=== PATIENT | male | born 1995 | race Caucasian/White ===

== ENCOUNTER → 2020-12-30 12:26 | Outpatient (BNVA) | payer OTHER, SELFPAY | PROVIDERS: PCP Nurse Practitioner Family; Visit Provider Chiropractor | DX: Z01.812 Encounter for preprocedural laboratory examination (principal); Z20.822 Contact with and (suspected) exposure to COVID-19; Z11.52 Encounter for screening for COVID-19 | CPT/HCPCS: 87635 ==

== ENCOUNTER 2021-01-04 10:50 | Outpatient (CLI) | payer OTHER, SELFPAY ==
--- NOTE | 2021-01-04 12:37 | PFTS_ITS ---
Date of Study:01/04/21 Date of Dictation: 01/08/2021 MECHANICS: Post bronchodilator Forced vital capacity (FVC) is normal. Post bronchodilator Forced expiratory volume in one second (FEV1) is normal. FEV1/FVC is reduced. There is no significant response to bronchodilators. FLOW VOLUME LOOP: normal LUNG VOLUMES: not measured DIFFUSING CAPACITY FOR CARBON MONOXIDE: not measured . INTERPRETATION: The spirometry suggestive of very mild obstructive lung disease with no significant response to bronchodilators. Clinical correlation recommended. [facility]
== END 2021-01-04 10:51 | disposition home or self-care (01) ==
PROVIDERS: PCP Nurse Practitioner Family; Visit Provider Chiropractor
DX: J45.909 Unspecified asthma, uncomplicated (principal)
CPT/HCPCS: 94060; J7611

== ENCOUNTER 2021-01-11 13:46 | Emergency (ER) | payer OTHER, SELFPAY ==
[2021-01-11 14:08] VITALS: BP 124/84; PULSE 82; RESP 18; TEMP 36.6; O2SAT 96; BMI 35.7
[2021-01-11 16:00] LABS: Add Urine Microscopic? NO; Bilirubin Urine Neg (Negative); Blood Urine Neg (Negative); Glucose Urine UA Norm (Normal); Ketones Urine Negative (Negative); Leukocyte Esterase Urine Negative (Negative); Nitrate Urine Negative (Negative); Protein Urine Neg (Negative); Specific Gravity, Urine 1.015 (1.005-1.030); Urine Appearance Clear (CLEAR); Urine Color Yellow (Yellow); Urobilinogen Urine Norm (Negative); pH Urine 6 (5-7)
[2021-01-11 16:02] LABS: Charge for UA Resulting for Rev
--- NOTE | 2021-01-11 17:25 | W.ED.BACK ---
HPI - Back Pain/Injury General: Chief Complaint: Back Pain/Injury Stated Complaint: Lower Back Pain Time Seen by Provider: 01/11/21 17:24 History of Present Illness: HPI Narrative: Patient is a 25-year-old male who comes to the ED with chronic back pain. Patient said he has been having back pain for the last 4 years. Today he has worsening back pain he rates it at 8 out of 10 and describes it as an aching feeling. Patient says pain radiates down both left and right legs. Denies any known injury. Patient was seen at urgent care today and was sent here to the ED to get an x-ray of the lumbar spine. Associated symptoms: Deny abdominal pain, chills, dysuria, fatigue, fever(s), hematuria, nausea or vomiting Review of Systems Const: Denies: fever(s), chills or fatigue Eyes: Denies: change in vision or eye discomfort ENMT: Denies: throat pain, odynophagia, nasal discharge or nasal congestion Card: Denies: chest pain, palpitations, edema, swelling of feet/ankles, dyspnea on exertion or orthopnea Resp: Denies: dyspnea, productive cough or non-productive cough GI: Denies: abdominal pain, nausea, vomiting, diarrhea, constipation or hematochezia : Denies: flank pain, difficulty urinating, dysuria or hematuria Musc: Reports: back pain; Denies: neck pain or extremity swelling Skin/Breast: Denies: rash or new lesions Neuro: Denies: headache(s), numbness in extremities or weakness in extremities [facility] PFSH: Social History Smoking and tobacco status: never smoked Physical Exam Const: COMMON NORMALS: no acute distress, patient oriented x3 and alert GENERAL APPEARANCE: cooperative and comfortable HENMT: COMMON NORMALS: normocephalic HEAD & SCALP: normocephalic MOUTH: Normal oral and palatal mucosa present THROAT: posterior oropharynx normal and uvula midline Neck/C-Spine: COMMON NORMALS: supple GENERAL: Yes normal visual inspection Resp: COMMON NORMALS: normal respiratory effort, No retractions, No use of accessory muscles and clear to auscultation bilaterally AUSCULTATION: clear to auscultation bilaterally Cardio: COMMON NORMALS: regular rate, regular rhythm, S1 normal heart sound present, S2 normal heart sound present, No gallops present (Cardio), No clicks present (Cardio), No murmurs present (Cardio) and Peripheral pulses 2+ throughout RATE: regular rate RHYTHM: regular rhythm HEART SOUNDS: S1 normal heart sound present and S2 normal heart sound present PERIPHERAL PULSES: Peripheral pulses 2+ throughout GI: COMMON NORMALS: Normal to inspection, nondistended, normoactive bowel sounds present, Soft to palpation, non-tender and no masses PALPATION: Yes Soft to palpation : COMMON NORMALS: Yes no CVA tenderness BLADDER/KIDNEY EXAM: Yes no CVA tenderness Back/Pelvis: COMMON NORMALS: no CVA tenderness LUMBAR SPINE/LOWER BACK: Yes pain with ROM, Yes paraspinal muscle tenderness Lumbar paraspinal muscle tenderness: bilateral Bilateral lumbar paraspinal muscle tenderness: L4 and L5, Yes straight leg raise positive right and Yes straight leg raise positive left Extremity: COMMON NORMALS: normal to inspection Neuro: COMMON NORMALS: patient oriented x3 and moves all extremities SENSORIUM/ORIENTATION: Yes alert Skin: GENERAL SKIN EXAM: dry skin Course Vital Signs: Vital signs: Vital Signs Temperature 97.9 F 01/11/21 14:08 Pulse Rate 79 01/11/21 18:37 Respiratory Rate 18 01/11/21 14:08 Blood Pressure 124/84 01/11/21 14:08 Pulse Oximetry 97 01/11/21 18:37 MDM - Back Pain/Injury MDM Narrative: Medical decision making narrative: Patient is a 25-year-old male comes to the ED with chronic lower back pain. Denies any recent injury and says he has been having back pain over the last 3 years but it got worse today. He says his pain radiates down both left and right lower extremities. He was seen in urgent care and sent here to the ED for lumbar spine x-ray. Denies any cauda equina symptoms. Exam shows some paraspinal muscle tenderness in the low lumbar L4 and L5 region. He has a positive straight leg right and left test. Rest of exam is benign. X-ray lumbar spine showed no acute fractures or findings. Patient was given dose of Toradol and Decadron while here in the ED. He was discharged home and diagnosed with lumbar radiculopathy. He was sent with prescriptions for methocarbamol, ibuprofen 800 mg and a Medrol Dosepak. Follow-up with PCP in 7 to 10 days reevaluation. Return to ED precautions given. Patient understood and agree with plan. Lab Data: Attestation: I reviewed the patient's lab results. Labs: Lab Results 01/11/21 Range/Units 15:49 Urine Color Yellow (Yellow) Urine Appearance Clear (CLEAR) Urine pH 6 (5-7) Ur Specific Gravit y 1.015 (1.005-1.030) Urine Protein Neg (Negative) Urine Glucose (UA) Norm (Normal) Urine Ketones Negative (Negative) Urine Blood Neg (Negative) Urine Nitrate Negative (Negative) Urine Bilirubin Neg (Negative) Urine Urobilinogen Norm (Negative) mg/dL Ur Leukocyte Laxmi ase Negative (Negative) Imaging Data^: Xray Ortho: Attestation: I personally reviewed and interpreted this imaging study as follows: Radiologist's impression: [address] [address] XRay Report Signed Patient: Sergio Mcginnis Unit #: [id number] : 1995 Age/Sex: 25 / M ADM Date: 01/11/21 Loc: ER Room/Bed: Attending Dr: Ordering Provider/Ordering MD: Elfego Costa Date of Service: 01/11/21 Procedure(s): XR lumbar spine 2-3V* [id number] Accession Number(s): [id number] Report Number: [id number] PROCEDURE INFORMATION: Exam: XR Lumbosacral Spine Exam date and time: 01/11/2021 5:35 PM Age: 25 years old Clinical indication: Low back pain; Additional info: Lower back pain TECHNIQUE: Imaging protocol: XR of the lumbosacral spine. Views: 2 or 3 views. COMPARISON: No relevant prior studies available. FINDINGS: Bones/joints: Normal. No acute fracture. Normal alignment. Soft tissues: Unremarkable. XR/XR lumbar spine 2-3V* [id number] IMPRESSION: No acute findings. Dictated By: Stefan Samuels Signed By: Stefan Samuels Signed Date/Time: 01/11/211822 DD/ 21 Discharge Plan Discharge Patient Disposition: Home Clinical Impression: Lumbar radiculopathy Condition: Stable Prescriptions: New methocarbamol 750 mg tablet 750 mg PO Q8H Qty: 15 RF: 0 Medrol (Zackary) 4 mg tablets,dose pack See Rx Instructions .ROUTE .COMPLEX Qty: 21 RF: 0 ibuprofen 800 mg tablet 800 mg PO Q8H PRN (Reason: pain) Qty: 20 RF: 0 No Action montelukast [Singulair] 10 mg tablet 10 mg PO DAILY RF: 0 fluticasone propion-salmeterol [Advair Diskus] 250-50 mcg/dose blister with device 1 inh inhalation BID RF: 0 albuterol sulfate 0.63 mg/3 mL solution for nebulization 0.63 mg inhalation QID PRNRF: 0 cetirizine [Zyrtec] 10 mg tablet 10 mg PO DAILY PRNRF: 0 Discharge Orders: Discharge ED (Routine); Ordered 01/11/21 Ordered By: Elfego Costa Referrals: Sofie Ocampo FNP-C [Primary Care Provider] - Discharge Diet: Regular Discharge Activity: Increase activity as tolerated Patient Instructions: Lumbar Radiculopathy (ED) Activity Restrictions/Additional Instructions: Follow-up with medical provider as directed in 7 to 10 days reevaluation. Take medications as prescribed. Rest and limit lifting to allow for healing. Stretch lower back daily and apply cold pack or heat on lower back to help with symptoms. Return to the ER or your medical provider if condition worsens. Please read and understand discharge instructions. Thank you for choosing [facility] for your healthcare needs today. Please realize this is an emergency room and that we are providing you with a medical screening exam and this may not be complete and all inclusive of all the testing and or work up that you may need to determine your ailment or severity of your illness. It is very important that you follow up as instructed or that you return to the Emergency Department should you have concerns or if your condition changes or worsens in any way. 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
--- NOTE | 2021-01-11 17:35 | XRR_ITS ---
PROCEDURE INFORMATION: Exam: XR Lumbosacral Spine Exam date and time: 01/11/2021 5:35 PM Age: 25 years old Clinical indication: Low back pain; Additional info: Lower back pain TECHNIQUE: Imaging protocol: XR of the lumbosacral spine. Views: 2 or 3 views. COMPARISON: No relevant prior studies available. FINDINGS: Bones/joints: Normal. No acute fracture. Normal alignment. Soft tissues: Unremarkable. XR/XR lumbar spine 2-3V* [id number] IMPRESSION: No acute findings.
[2021-01-11] MEDS: dexamethasone 10 mg/mL INJ IM (18:12)
[2021-01-11] MEDS: ketorolac 60 mg/2 mL INJ IM (18:12)
[2021-01-11 18:37] VITALS: PULSE 79; O2SAT 97
== END 2021-01-11 18:38 | disposition home or self-care (01) ==
PROVIDERS: Registered Nurse; Emergency Provider Physician Assistant; PCP Nurse Practitioner Family
DX: M54.16 Radiculopathy, lumbar region (principal)
CPT/HCPCS: 72100; 81003; 96372; 99283; J1100; J1885

== ENCOUNTER 2021-04-02 12:13 | Outpatient (CLI) | payer OTHER, SELFPAY ==
--- NOTE | 2021-04-02 13:00 | MR_ITS ---
WS: [id number] MRI LUMBAR SPINE NONCONTRAST HISTORY: M54.9 - Dorsalgia, unspecified COMPARISON: None available. TECHNIQUE: Sagittal and axial multisequence imaging is submitted. Normal lumbar alignment with no compression fractures or marrow edema. Disc desiccation is mild at L4-5 L5-S1. Conus terminates normally at L1-2 disc level. L1-L2: Normal. L2-L3: Normal. L3-L4: Diffuse annular disc bulging with mild ligamentum flavum hypertrophy and facet arthritis. Very mild foraminal narrowing bilaterally. L4-L5: Diffuse annular disc bulging with a central disc protrusion. Disc protrusion is contacting the traversing L5 nerve roots. Mild central and bilateral foraminal narrowing. Mild ligamentum flavum di sease and facet arthritis. L5-S1: Moderate to large central and RIGHT paracentral disc protrusion deforming the RIGHT lateral th ecal sac and displacing the RIGHT S1 nerve root posteriorly. Additional mild annular disc bulging wit h mild bilateral foraminal stenosis. MR/MR lumbar spine wo con* [id number] IMPRESSION: 1. Moderate to large RIGHT central and RIGHT paracentral disc protrusion at L5 -S1 contacting and posteriorly displacing the RIGHT S1 nerve root. 2. Minimal foraminal narrowing at L3-4 and L5-S1. 3. Mild central and bilateral foraminal narrowing at L4-5.
== END 2021-04-02 12:14 | disposition home or self-care (01) ==
PROVIDERS: PCP Nurse Practitioner Family; Visit Provider Nurse Practitioner
DX: M51.27 Other intervertebral disc displacement, lumbosacral region (principal)
CPT/HCPCS: 72148

== ENCOUNTER 2021-05-24 12:35 | Outpatient (CLI) | payer OTHER, SELFPAY ==
--- NOTE | 2021-05-24 12:40 | XRR_ITS ---
PROCEDURE INFORMATION: Exam: XR Lumbosacral Spine Exam date and time: 05/24/2021 12:40 PM Age: 26 years old Clinical indication: Low back pain; Additional info: Vertebrogenic low back pain, please comment on presence of spinal instability TECHNIQUE: Imaging protocol: XR of the lumbosacral spine. Views: 2 or 3 views. COMPARISON: MR lumbar spine wo con* [id number] 04/02/2021 1:10 PM FINDINGS: Bones/joints: Vertebral bodies intact and normally aligned. No subluxation noted on flexion and extension views. Mild disc space narrowing at L5/S1 with small osteophytes. Soft tissues: Unremarkable. XR/XR lumbar spine f/e only [id number] IMPRESSION: No acute findings. No evidence of spinal instability on flexion/extension views. Radiation Dose CTDIVOL = (mGy): DLP = (mGy-cm)
== END 2021-05-24 12:36 | disposition home or self-care (01) ==
PROVIDERS: PCP Nurse Practitioner Family; Visit Provider Nurse Practitioner
DX: M54.51 Vertebrogenic low back pain (principal)
CPT/HCPCS: 72120

== ENCOUNTER 2022-01-28 01:55 | Emergency (ER) | payer OTHER, SELFPAY ==
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
[2022-01-28 02:05] VITALS: BMI 31.5
[2022-01-28] MEDS: iohexol 350 mg/mL 100 mL Btl IV (02:45)
[2022-01-28] MEDS: ketorolac 30 mg/mL INJ 15 MG IVP (02:49)
[2022-01-28 02:51] VITALS: PULSE 89
[2022-01-28 02:55] VITALS: BP 153/81; PULSE 89; RESP 19; O2SAT 98
[2022-01-28 03:31] VITALS: BP 149/97; PULSE 89; RESP 19; TEMP 37.1; O2SAT 97
[2022-01-28 03:32] VITALS: BP 149/97; PULSE 89; RESP 19; TEMP 37.1; O2SAT 97
== END 2022-01-28 03:28 | disposition home or self-care (01) ==
PROVIDERS: Emergency Provider Emergency Medicine; PCP Nurse Practitioner Family
DX: Z04.1 Encounter for examination and observation following transport accident (principal); Z87.891 Personal history of nicotine dependence; V89.2XXA Person injured in unspecified motor-vehicle accident, traffic, initial encounter
CPT/HCPCS: 70450; 71260; 72125; 73552; 74177; 96374; 99284; J1885; Q9967

== ENCOUNTER 2023-03-13 15:02 | Emergency (ER) | payer OTHER, SELFPAY ==
[2023-03-13 15:07] VITALS: BP 164/100; PULSE 76; RESP 18; TEMP 36.3; O2SAT 96; BMI 34.4
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
[2023-03-13 15:49] LABS: Basophils # 0.1 10^3/uL (0.0-0.1); Basophils % 0.8 %; Eosinophils # 0.3 10^3/uL (0.0-0.8); Eosinophils % 4.6 %; Hematocrit 41.7 % (37-53); Lymphocytes # 2.1 10^3/uL (0.8-4.8); Mean Corpuscular HGB Conc 33.8 g/dL (30-55); Mean Corpuscular Hemoglobin 31.5 pg (27-33); Mean Corpuscular Volume 93.1 fl (82-101); Mean Platelet Volume 9.8 fL (7.4-10.4); Monocytes # 0.6 10^3/uL (0.2-0.9); Monocytes % 9.6 %; Neutrophils # 3.22 10^3/uL (1.8-7.7); Neutrophils % 51.5 %; Nucleated Red Blood Cells % 0 %; Platelet Count 296 10^3/cmm (157-399); Red Blood Count 4.48 10^6/uL (3.85-5.65); Red Cell Distribution Width 11.6 % (12.1-15.1); White Blood Count 6.25 10^3/uL (3.29-11.43)
[2023-03-13 16:05] LABS: Alanine Aminotransferase 26 U/L (0-41); Albumin Level 4.8 g/dL (3.5-5.2); Alkaline Phosphatase 53 U/L (40-130); Anion Gap 14.4 (5-19); Aspartate Amino Transferase 24 U/L (0-40); Blood Urea Nitrogen 14 mg/dL (6-20); Calcium 9.2 mg/dL (8.5-10.5); Carbon Dioxide 27 mmol/L (22-29); Chloride 103 mmol/L (98-107); Creatinine Clr Calc Pharmacy 149.6184; Globulin 2.7 g/dL (1.3-4.6); Glomerular Filtration Rate 99.8 mL/min (90-130); Glucose 97 mg/dL (65-115); Osmolality Calculated 290 mOsm/kg (285-295); Potassium 4.4 mmol/L (3.5-5.1); Sodium 140 mmol/L (136-145); Total Bilirubin 0.5 mg/dL (0.15-1.2); Total Protein 7.5 g/dL (6.6-8.7)
[2023-03-13 16:54] LABS: Hepatitis A Antibody IgM Non-Reactive (Nonreactive); Hepatitis B Core IgM Non-Reactive (Nonreactive); Hepatitis B Surface Antigen Non-Reactive (Nonreactive)
[2023-03-13 17:24] LABS: Hepatitis C Virus Antibody Non-Reactive (Nonreactive)
[2023-03-13 20:12] LABS: HIV 1 & 2 Antibody Non-Reactive (Non-Reactiv); HIV 1 & 2 Antigen Non-Reactive (Non-Reactiv)
== END 2023-03-13 16:04 | disposition home or self-care (01) ==
PROVIDERS: Emergency Provider Family Medicine; PCP Nurse Practitioner Family
DX: S61.231A Puncture wound without foreign body of left index finger without damage to nail, initial encounter (principal); W46.1XXA Contact with contaminated hypodermic needle, initial encounter; Y99.0 Civilian activity done for income or pay; Z87.891 Personal history of nicotine dependence
CPT/HCPCS: 80053; 80074; 85025; 87806; 99283